=== PATIENT | male | born 1960 | race African-American/Black ===

== ENCOUNTER 2018-02-06 11:06 | Emergency (ER) | payer OTHER, SELFPAY ==
[2018-02-06] MEDS ORDERED: Dexamethasone 10 MG/ML VIAL ONE (11:33)
== END 2018-02-06 11:40 | disposition home or self-care (01) ==
LOC: MADERS 11:06
DX: T78.3XXA Angioneurotic edema, initial encounter (principal); E11.9 Type 2 diabetes mellitus without complications; I10 Essential (primary) hypertension; Z79.899 Other long term (current) drug therapy; Z79.84 Long term (current) use of oral hypoglycemic drugs
CPT/HCPCS: 96372; J1100

== ENCOUNTER 2019-03-31 16:21 | Emergency (ER) | payer OTHER, SELFPAY | END 2019-03-31 17:01 | disposition home or self-care (01) | LOC: MADERS 16:21 | DX: K04.7 Periapical abscess without sinus (principal); K02.9 Dental caries, unspecified; E11.9 Type 2 diabetes mellitus without complications; I10 Essential (primary) hypertension | CPT/HCPCS: 99283 ==

== ENCOUNTER 2019-06-11 03:46 | Emergency (ER) | payer SELFPAY ==
[2019-06-11] MEDS ORDERED: Amlodipine 5 MG TAB ONE (04:27)
[2019-06-11] MEDS ORDERED: Ibuprofen 600 MG TAB ONE (04:27)
== END 2019-06-11 05:00 | disposition home or self-care (01) ==
LOC: MADERS 03:46
DX: G44.209 Tension-type headache, unspecified, not intractable (principal); I10 Essential (primary) hypertension; E11.9 Type 2 diabetes mellitus without complications

== ENCOUNTER 2020-03-21 00:33 | Emergency (ER) | payer OTHER, SELFPAY ==
--- NOTE | 2020-03-21 07:57 | RAD ---
CHEST 1 VIEW: INDICATION: Cough an chills. COMPARISON: Prior exam dated 07/19/2011. FINDINGS: There is persistent elevation of the right hemidiaphragm. No consolidation is evident. Heart size i s normal. No acute osseous abnormality is evident. IMPRESSION: No acute abnormality. POS: BH
[2020-03-21 18:27] LABS: SARS-CoV-2 MS2 Positive; SARS-CoV-2 N Gene Positive; SARS-CoV-2 S Gene Positive; SARS-CoV-2 by NAA DETECTED (NotDetected); SARS-CoV-2 orf1ab Positive
== END 2020-03-21 02:40 | disposition home or self-care (01) ==
LOC: MADERS 00:33
DX: U07.1 COVID-19 (principal); E11.9 Type 2 diabetes mellitus without complications; I10 Essential (primary) hypertension; Z79.899 Other long term (current) drug therapy
CPT/HCPCS: 71045; 87635; U0003

== ENCOUNTER 2020-03-26 12:19 | Emergency (ER) | payer SELFPAY ==
[~2020-03-26 12:19] MED LIST: Iopamidol 370 76% 125 ML VIAL FS ONE
[2020-03-26] MEDS ORDERED: Ibuprofen 400 MG TAB ONE (13:07)
[2020-03-26] MEDS ORDERED: Acetaminophen 500 MG TAB ONE (13:07)
[2020-03-26] MEDS ORDERED: Sodium Chloride 0.9% 1,000 ML ONE (13:14)
[2020-03-26] MEDS ORDERED: Dexamethasone 10 MG/ML VIAL ONE (13:14)
[2020-03-26] MEDS ORDERED: Sodium Chloride 0.9% 100 ML ONE (13:14)
[2020-03-26] MEDS ORDERED: cefTRIAXone\\ROCEPHIN 1 GM VIAL ONE (13:14)
[2020-03-26] MEDS ORDERED: Sodium Chloride 0.9% 250 ML 250 ML ONE (13:14)
[2020-03-26] MEDS ORDERED: Aspirin Chewable 81 MG TAB ONE (13:14)
[2020-03-26] MEDS ORDERED: Azithromycin 500 MG VIAL ONE (13:14)
[2020-03-26 13:40] LABS: #Lymphocytes 0.7 thou/uL (1.20-3.40); #Monocytes 0.4 thou/uL (0.11-0.59); #Neutrophils 4.9 thou/uL (1.40-6.50); %Basophils 0.4 % (0.0-1.0); %Monocytes 5.9 % (0.0-10.0); %Neutrophils 81.7 % (42.0-75.0); Hemoglobin 15.8 g/dL (14.0-18.0); Mean Corpuscular Hemoglobin 25.7 pg (27.0-31.0); Mean Platelet Volume 8.2 fL (7.4-10.4); Platelet Count 163 thou/uL (130-400); RBC Distribution Width 12.6 % (11.5-14.5); Red Blood Cell (RBC) Count 6.13 mill/uL (4.70-6.10)
[2020-03-26 13:44] LABS: PTT 31.5 sec (22.9-36.1); Prothrombin Time 12.7 sec (12.0-14.7)
[2020-03-26 13:45] LABS: D-Dimer Test 0.9 *mcg/mL (0.27-0.43)
[2020-03-26 13:53] LABS: ALT (SGPT) 269 U/L (8-55); AST (SGOT) 259 U/L (5-34); Albumin 4.1 g/dL (3.5-5.0); Alkaline Phosphatase 73 U/L (40-110); Anion Gap 17 mmol/L (10-20); BUN (Urea Nitrogen) 21 mg/dL (8.4-25.7); Bilirubin, Total 0.5 mg/dL (0.2-1.2); Calc. Creatinine Clearance 0 mL/min (70-130); Calcium 9.1 mg/dL (7.8-10.44); Carbon Dioxide 25 mmol/L (22-29); Chloride 98 mmol/L (98-107); Estimated GFR-MDRD 50; Globulin 3.7 g/dL (2.4-3.5); Glucose 107 mg/dL (70-105); Potassium 4.1 mmol/L (3.5-5.1); Protein, Total 7.8 g/dL (6.0-8.3); Sodium 136 mmol/L (136-145)
--- NOTE | 2020-03-26 13:55 | RAD ---
PORTABLE CHEST 1 VIEW: DATE: 03/26/2020. TIME: 1:19 PM. HISTORY: Dyspnea. COMPARISON: 03/21/2020. FINDINGS/IMPRESSION: There is continued elevation of the right hemidiaphragm with adjacent mild atelectatic change. There are mild patchy infiltrates in the lingula which are new since the last exam. No pneumothoraces or large effusions are identified. POS: OFF
[2020-03-26] MEDS ORDERED: Enoxaparin Sodium 80 MG/0.8 ML SYRINGE ONE (13:57)
[2020-03-26 14:12] LABS: CRP (Inflammatory) 16.18 mg/dL (= or < 0.5)
--- NOTE | 2020-03-26 15:14 | CT ---
CT PULMONARY ANGIOGRAM WITH IV CONTRAST AND 3D POSTPROCESSIN03/26/20 HISTORY: Dyspnea, positive D-dimer. Concern for COVID-19. FINDINGS: No filling defects are seen in the pulmonary arterial vasculature to suggest pulmonary embolism. The thoracic aorta is well opacified without aneurysmal dissection. No pleural or pericardial effusions are seen. Patchy peripheral areas of consolidation and ground glass opacities are noted bilaterally. No pneumothoraces or identified. The tracheobronchial tree is patent. Upper abdominal tomograms demon strate fatty infiltration of the liver. There are mild degenerative changes of the spine. IMPRESSION: 1. No CT evidence of pulmonary embolism. 2. Parenchymal changes may be consistent with viral pneumonia in the appropriate setting. 3. Fatty liver. POS: OFF
== END 2020-03-26 15:15 | disposition short-term general hospital (02) ==
LOC: MADERS 12:19
DX: U07.1 COVID-19 (principal); J96.91 Respiratory failure, unspecified with hypoxia; E11.9 Type 2 diabetes mellitus without complications; I10 Essential (primary) hypertension
CPT/HCPCS: 71045; 71275; 80053; 82550; 82728; 83605; 84484; 85025; 85379; 85610; 85730; 86140; 93005; 94760; 96365; 96372; 96375; J0456; J0696; J1100; J1650; J3490; J7050; Q9967

== ENCOUNTER 2021-11-22 14:49 | Emergency (ER) | payer BC, OTHER | END 2021-11-22 16:16 | disposition home or self-care (01) | LOC: MADERS 14:49 | DX: M25.512 Pain in left shoulder (principal); R55 Syncope and collapse; E78.5 Hyperlipidemia, unspecified; E11.9 Type 2 diabetes mellitus without complications; Z79.84 Long term (current) use of oral hypoglycemic drugs; Z79.899 Other long term (current) drug therapy | CPT/HCPCS: 93005 ==

== ENCOUNTER 2022-06-11 04:53 | Emergency (ER) | payer BC ==
[2022-06-11] MEDS ORDERED: Dexamethasone 10 MG/ML VIAL ONE (06:10)
[2022-06-11] MEDS ORDERED: Morphine 2 MG/ML VIAL ONE (06:54)
== END 2022-06-11 06:15 | disposition home or self-care (01) ==
LOC: MADERS 04:53
DX: J02.9 Acute pharyngitis, unspecified (principal); J06.9 Acute upper respiratory infection, unspecified; E78.00 Pure hypercholesterolemia, unspecified; E11.9 Type 2 diabetes mellitus without complications; Z79.84 Long term (current) use of oral hypoglycemic drugs; I10 Essential (primary) hypertension; Z79.899 Other long term (current) drug therapy
CPT/HCPCS: 87081; 87430; 87804; 99283; J1100; J2270

== ENCOUNTER 2022-08-25 07:31 | Emergency (ER) | payer BC, SELFPAY ==
[2022-08-25] MEDS ORDERED: Dexamethasone 4 MG TAB ONE (07:58)
== END 2022-08-25 08:40 | disposition home or self-care (01) ==
LOC: MADERS 07:31
DX: J02.8 Acute pharyngitis due to other specified organisms (principal); E78.00 Pure hypercholesterolemia, unspecified; E11.9 Type 2 diabetes mellitus without complications; I10 Essential (primary) hypertension
CPT/HCPCS: 87081; 87430; 87804; 99283; J8540

== ENCOUNTER 2023-05-21 14:15 | Emergency (ER) | payer OTHER ==
[2023-05-21] MEDS ORDERED: Lidocaine 4% Patch ONE (14:59)
[2023-05-21] MEDS ORDERED: Ketorolac Tromethamine 30 MG/ML VIAL ONE (14:59)
== END 2023-05-21 16:10 | disposition home or self-care (01) ==
LOC: MADERS 14:15
DX: S33.5XXA Sprain of ligaments of lumbar spine, initial encounter (principal); E11.9 Type 2 diabetes mellitus without complications; Z79.84 Long term (current) use of oral hypoglycemic drugs; W01.0XXA Fall on same level from slipping, tripping and stumbling without subsequent striking against object, initial encounter
CPT/HCPCS: 72131; 96374; J1885

== ENCOUNTER 2023-12-22 05:03 | Emergency (ER) | payer OTHER ==
[2023-12-22] MEDS ORDERED: Bacitracin 1 PK ONE (05:21)
== END 2023-12-22 05:26 | disposition home or self-care (01) ==
LOC: MADERS 05:03
DX: L24.9 Irritant contact dermatitis, unspecified cause (principal); E78.5 Hyperlipidemia, unspecified; E11.9 Type 2 diabetes mellitus without complications; I10 Essential (primary) hypertension; Z79.899 Other long term (current) drug therapy; Z79.84 Long term (current) use of oral hypoglycemic drugs
CPT/HCPCS: 99282

== ENCOUNTER 2024-11-04 11:15 | Emergency (ER) | payer OTHER | END 2024-11-04 13:36 | disposition home or self-care (01) | LOC: MADERS 11:15 | DX: J06.9 Acute upper respiratory infection, unspecified (principal); I10 Essential (primary) hypertension; E78.5 Hyperlipidemia, unspecified; E11.9 Type 2 diabetes mellitus without complications; Z79.84 Long term (current) use of oral hypoglycemic drugs; Z79.899 Other long term (current) drug therapy | CPT/HCPCS: 71045 ==

== ENCOUNTER 2025-02-26 09:51 | Emergency (ER) | payer OTHER ==
[2025-02-26] MEDS ORDERED: Cyclobenzaprine 10 MG TAB ONE (10:19)
[2025-02-26] MEDS ORDERED: Ibuprofen 800 MG TAB ONE (10:19)
== END 2025-02-26 10:41 | disposition home or self-care (01) ==
LOC: MADERS 09:51
DX: S39.012A Strain of muscle, fascia and tendon of lower back, initial encounter (principal); E11.9 Type 2 diabetes mellitus without complications; I10 Essential (primary) hypertension; X50.1XXA Overexertion from prolonged static or awkward postures, initial encounter
CPT/HCPCS: 99283